=== PATIENT | female | born 1955 | race Caucasian/White ===

== ENCOUNTER → 2017-03-06 | Outpatient (CLI) | payer MEDICARE, OTHER ==
[~2017-03-06] MED LIST: ADULT LOW DOSE81 MG PO; AUGMENTIN 875-1 EACH PO; COZAAR100 MG PO; CYMBALTA60 MG PO; GLUCOPHAGE1000 MG PO; HUMALOG100 UNIT/1 SQ; HYDROCHLOROTHIA25 MG PO; IBUPROFEN600 MG PO; LANTUS100 UNIT/1 SQ; LIPITOR TAB 2020 MG PO; LYRICA200 MG PO; SPIRIVA HANDIH18 MCG INH; SYMBICORT 160-1 INHA INH; TYLENOL 500 MG500 MG PO
[2017-03-06 11:33] LABS: HEMOGLOBIN 15.1 gm/dl (12.3-15.3); RED BLOOD COUNT 5.22 M/UL (4.00-5.10); WHITE BLOOD COUNT 11.9 K/UL (4.5-11.0)
[2017-03-06 11:52] LABS: BUN/CREATININE RATIO 20 (0-10)
== END ==
LOC: LAB 11:00
PROVIDERS: Physician Assistant Medical
DX: R10.0 Acute abdomen (principal)
CPT/HCPCS: 36415; 80053; 82150; 83690; 85027

== ENCOUNTER → 2017-03-07 | Outpatient (CLI) | payer MEDICARE, OTHER ==
[2017-03-07 12:09] LABS: HEMOGLOBIN 14.7 gm/dl (12.3-15.3); RED BLOOD COUNT 5.09 M/UL (4.00-5.10); WHITE BLOOD COUNT 9.5 K/UL (4.5-11.0)
[2017-03-07 12:34] LABS: BUN/CREATININE RATIO 21 (0-10)
== END ==
LOC: LAB 11:17
PROVIDERS: Physician Assistant Medical
DX: D72.9 Disorder of white blood cells, unspecified (principal); R94.5 Abnormal results of liver function studies
CPT/HCPCS: 36415; 80053; 85027

== ENCOUNTER → 2017-03-10 | Outpatient (CLI) | payer MEDICARE, OTHER | LOC: KOH-I 09:27 | DX: R10.0 Acute abdomen (principal); R10.9 Unspecified abdominal pain; K76.0 Fatty (change of) liver, not elsewhere classified; R16.0 Hepatomegaly, not elsewhere classified | CPT/HCPCS: 76700 ==

== ENCOUNTER 2021-01-02 14:42 | Observation (INO) | payer MEDICARE ==
[~2021-01-02] VITALS: Ht 157.5 cm; Wt 86.2 kg
[~2021-01-02 14:42] MED LIST changes: +ALBUTEROL2.5 MG/3 M INH; +CARVEDILOL6.25 MG PO; +CLOPIDOGREL75 MG PO; -HUMALOG100 UNIT/1 SQ; +HUMALOG100 UNIT/3 SC; +HYDROXYZINE HCL25 MG PO; +ISOSORBIDE MONO60 MG PO; +LASIX TAB 20 MG20 MG PO; +LIPITOR40 MG PO; +LISINOPRIL5 MG PO; +LOSARTAN-HCTZ1 EAC2 PO; +NEURONTIN400 MG PO; +NITROSTAT 0.40.4 MG SL; +OTEZLA30 MG PO; +REMERON15 MG PO; +VENTOLIN HFA 66.7 GM INH
[2021-01-02 15:50] LABS: HEMOGLOBIN 15.2 gm/dl (12.3-15.3); RED BLOOD COUNT 4.81 M/UL (4.00-5.10); WHITE BLOOD COUNT 13.1 K/UL (4.5-11.0)
[2021-01-02 16:05] LABS: BUN/CREATININE RATIO 20 (0-10)
--- NOTE | 2021-01-03 02:39 | NUR ---
APPROX. 2129: DURING MY ASSESSMENT OF THE PT, PT HAD DISCOLORATION TO BILATERAL LOWER EXTREMITIES. BILATERAL FEET ARE COOL TO THE TOUCH. PT'S CAPILLARY REFILL IS DELAYED, GREATER THAN 3 SECONDS. PT IS ABLE TO MOVE BILATERAL LOWER EXTREMITIES EQUALLY. PT IS ABLE TO FLEX ANKLES OF BILATERAL LOWER EXTREMITIES. PT DENIES ANY NEW PAIN IN LEFT LEG, LEFT FOOT, RIGHT LEG OR RIGHT FOOT. PT STATES THAT HER PAIN IS FROM HER CHRONIC NEUROPATHY THAT SHE HAS BEEN DEALING WITH FOR YEARS. PT'S DISCOLORATION IN BILATERAL LOWER EXTREMITIES WORSENS WHEN PT'S LEGS ARE BELOW HER HEART. DISCOLORATION IMPROVES WHEN LEGS ARE ELEVATED. I WAS UNABLE TO PALPATE BILATERAL PEDAL PULSES. I WAS UNABLE TO LOCATE PEDAL PULSES WITH A DOPPLER WELL. I WAS ABLE TO LOCATE THE PT'S POST TIBIAL PULSES WITH A DOPPLER ONLY. APPROX. 2146: NOTIFIED THAT I WAS UNABLE TO PALPATE OR LOCATE THE PT'S BILATERAL PEDAL PULSES WITH A DOPPLER. NOTIFIED HIM THAT I WAS ABLE TO LOCATE THE PT'S POST TIBIAL PULSES WITH A DOPPLER ONLY. SEE PROVIDER NOTIFICATIONS FOR DETAILS. APPROX. 2199: NOTIFIED THAT I WAS UNABLE TO PALPATE OR LOCATE THE PT'S BILATERAL PEDAL PULSES WITH A DOPPLER. NOTIFIED HER THAT I WAS ABLE TO LOCATE THE PT'S POST TIBIAL PULSES WITH A DOPPLER ONLY. SEE PROVIDER NOTIFICATIONS FOR DETAILS. APPROX. 2234: CALLED ME BACK. HAD ME FACETIME HER VIA CELLPHONE AND BRING HER INTO THE PT'S ROOM SO SHE COULD SPEAK WITH THE PATIENT AND LOOK AT THE PT'S LEGS/FEET. SHOWED PT'S LEGS/FEET, CAPILLARY REFILLS, ABILITY TO FLEX BILATERAL ANKLES, ETC. STATED TO GET A STAT LACTIC AND STAT CK ON THE PT. ALSO ORDERED A STAT CTA OF THE ABDOMEN AND PELVIS WITH RUN OFF DOWN BOTH FEET. STATED TO NOTIFY HER OF THE RESULTS. APPROX. 235: NOTIFIED OF PT'S STAT LAB RESULTS. PENDING CTA RESULTS. SEE PROVIDER NOTIFICATIONS FOR DETAILS. APPROX. 0133: [facility] CALLED CRITICAL CTA RESULTS TO ME. APPROX. 0133: CALLED TO NOTIFY HER OF CRITICAL CTA RESULTS. STATED TO SEND HER THE REPORT. APPROX. 0145: HAD [employer] AGENT REPORT CTA FINDINGS TO . APPROX. 0156: CALLED ME BACK. STATED "ALL FINDINGS ARE CHRONIC AND CONSISTENT WITH DIABETES. NO NEED TO DO ANYTHING ELSE."
[2021-01-03 04:18] LABS: HEMOGLOBIN 14.4 gm/dl (12.3-15.3); RED BLOOD COUNT 4.57 M/UL (4.00-5.10); WHITE BLOOD COUNT 11.4 K/UL (4.5-11.0)
[2021-01-03 04:34] LABS: BUN/CREATININE RATIO 30 (0-10)
[2021-01-04 04:29] LABS: HEMOGLOBIN 14.3 gm/dl (12.3-15.3); RED BLOOD COUNT 4.54 M/UL (4.00-5.10); WHITE BLOOD COUNT 10.4 K/UL (4.5-11.0)
[2021-01-04 05:03] LABS: BUN/CREATININE RATIO 37 (0-10)
[2021-01-04] MEDS ORDERED: KEFLEX750 MG PO (12:23)
== END 2021-01-04 14:40 | disposition home or self-care (01) ==
LOC: ER1 14:42 → MED SURG 4 16:23 → CDU 16:23 → MED SURG 4 17:35
PROVIDERS: Emergency Medicine; Physician Assistant Medical; ADMIT Internal Medicine Infectious Disease
DX: E11.628 Type 2 diabetes mellitus with other skin complications (principal); L03.116 Cellulitis of left lower limb; S80.12XA Contusion of left lower leg, initial encounter; E11.51 Type 2 diabetes mellitus with diabetic peripheral angiopathy without gangrene; E11.65 Type 2 diabetes mellitus with hyperglycemia; I10 Essential (primary) hypertension; E11.42 Type 2 diabetes mellitus with diabetic polyneuropathy; J44.9 Chronic obstructive pulmonary disease, unspecified; M19.90 Unspecified osteoarthritis, unspecified site; G89.29 Other chronic pain; F17.210 Nicotine dependence, cigarettes, uncomplicated; F41.9 Anxiety disorder, unspecified; M54.9 Dorsalgia, unspecified; M32.9 Systemic lupus erythematosus, unspecified; I87.2 Venous insufficiency (chronic) (peripheral); Z20.822 Contact with and (suspected) exposure to COVID-19; E66.01 Morbid (severe) obesity due to excess calories; Z68.34 Body mass index [BMI] 34.0-34.9, adult; Z86.73 Personal history of transient ischemic attack (TIA), and cerebral infarction without residual deficits; Z88.8 Allergy status to other drugs, medicaments and biological substances; Z91.81 History of falling; Z79.01 Long term (current) use of anticoagulants; Z79.82 Long term (current) use of aspirin; Z79.02 Long term (current) use of antithrombotics/antiplatelets; Z79.4 Long term (current) use of insulin; X58.XXXA Exposure to other specified factors, initial encounter
CPT/HCPCS: 96365; 96366; 96372; 96375; 36415; 73590; 75635; 80048; 80053; 82550; 82553; 82962; 83036; 83605; 83735; 85025; 85027; 85610; 85652; 85730; 86140; 87040; 94640; 94664; 94760; 96376; 99285; G0378; J0295; J1650; J3370; J7030; J7040; Q9963; Q9967; U0002

== ENCOUNTER → 2021-04-20 | Outpatient (CLI) | payer MEDICARE ==
[~2021-04-20] MED LIST changes: +KEFLEX750 MG PO
== END ==
LOC: KOH-I 09:26
DX: M25.511 Pain in right shoulder (principal); M25.552 Pain in left hip; M54.5 Low back pain; M16.12 Unilateral primary osteoarthritis, left hip
CPT/HCPCS: 72220; 73030; 73502

== ENCOUNTER → 2021-10-25 | Outpatient (CLI) | payer MEDICARE | LOC: EXRD 10:25 | DX: Z09 Encounter for follow-up examination after completed treatment for conditions other than malignant neoplasm (principal); Z86.16 Personal history of COVID-19 | CPT/HCPCS: 71046 ==

== ENCOUNTER 2021-12-28 09:35 | Emergency (ER) | payer MEDICARE ==
[2021-12-28 11:01] LABS: HEMOGLOBIN 15.9 gm/dl (12.3-15.3); RED BLOOD COUNT 5.67 M/UL (4.00-5.10); WHITE BLOOD COUNT 8.7 K/UL (4.5-11.0)
[2021-12-28 11:37] LABS: BUN/CREATININE RATIO 17 (0-10)
[2021-12-28] MEDS ORDERED: ONDANSETRON ODT4 MG PO (14:57)
== END 2021-12-28 15:04 | disposition home or self-care (01) ==
LOC: ER1 09:35
PROVIDERS: Nurse Practitioner
DX: R11.2 Nausea with vomiting, unspecified (principal); Z20.822 Contact with and (suspected) exposure to COVID-19; I11.9 Hypertensive heart disease without heart failure; E11.9 Type 2 diabetes mellitus without complications; J44.9 Chronic obstructive pulmonary disease, unspecified; F17.210 Nicotine dependence, cigarettes, uncomplicated; Z88.5 Allergy status to narcotic agent
CPT/HCPCS: 0240U; 71045; 80053; 81001; 82009; 82550; 82553; 82803; 82962; 84484; 85025; 93005; 96374; 99284; J2405

== ENCOUNTER → 2022-03-29 | Outpatient (CLI) | payer MEDICARE ==
[~2022-03-29] MED LIST changes: +ONDANSETRON ODT4 MG PO
== END ==
LOC: SLEEP 09:17
DX: G47.33 Obstructive sleep apnea (adult) (pediatric) (principal)
CPT/HCPCS: 95811

== ENCOUNTER → 2022-04-05 | Outpatient (CLI) | payer MEDICARE | LOC: RT 11:42 | DX: Z28.9 Immunization not carried out for unspecified reason (principal); Z28.310 Unvaccinated for COVID-19 | CPT/HCPCS: 36600; 82803 ==